=== PATIENT | male | born 1965 | race Caucasian/White ===

== ENCOUNTER 2016-12-19 13:09 | Outpatient (CLI) | payer OTHER | END 2016-12-19 13:10 | disposition home or self-care (01) | DX: G47.33 Obstructive sleep apnea (adult) (pediatric) (principal); R09.02 Hypoxemia ==

== ENCOUNTER 2020-11-11 11:23 | Outpatient (CLI) | payer OTHER | END 2020-11-11 11:24 | disposition critical access hospital (66) | LOC: EMS 11:23 | DX: R06.02 Shortness of breath (principal) | CPT/HCPCS: A0425; A0429 ==

== ENCOUNTER 2020-11-11 11:44 | Emergency (ER) | payer OTHER ==
[2020-11-11 11:54] VITALS: BP 201/97
--- NOTE | 2020-11-11 11:58 | ED Physician Documentation ---
History of Present Illness - Stated complaint Stated Complaint: TASED BY [facility] - Chief complaint Chief Complaint: General - History obtained from History obtained from: Patient - Additonal information Additional information: Patient is brought to the emergency department by EMS after becoming short of breath during a traffic stop and ultimately, being tased by the police. Patient states he has a history of COPD and is on 3 L of oxygen at night plus sometimes during the day if needed. He also uses inhalers and a nebulizer machine. Patient also uses CPAP at night. Patient states he is feeling much better now after receiving oxygen in the ambulance. His room air saturation is reported to be 97% on room air. No other complaints at this time. Review of Systems Ten Systems: 10 systems reviewed and negative Constitutional: reports: Reviewed and negative Eyes: reports: Reviewed and negative Ears: reports: Reviewed and negative Nose: reports: Reviewed and negative Throat: reports: Reviewed and negative Cardiac: reports: Reviewed and negative Respiratory: reports: Dyspnea GI: reports: Reviewed and negative : reports: Reviewed and negative Skin: reports: Reviewed and negative Musculoskeletal: denies: Extremity swelling Neurologic: reports: Reviewed and negative Psychiatric: reports: Reviewed and negative Endocrine: reports: Reviewed and negative Immunocompromised: reports: Reviewed and negative PD PAST MEDICAL HISTORY - Past Medical History Cardiovascular: Hypertension Respiratory: COPD, Shortness of breath, Sleep apnea, CPAP use Endocrine/Autoimmune: None GI: GERD : None HEENT: None Psych: Depression, Anxiety, Panic attacks Musculoskeletal: Osteoarthritis Derm: None - Past Surgical History General: Cholecystectomy, Colonoscopy, Other Ortho: Arthroscopic surgery, Other - Present Medications Home Medications: Ambulatory Orders Medication Instructions Recorded Confirmed Acetaminophen [Tylenol Extra 500 mg PO Q6H PRN 07/07/16 07/07/16 Strength] Adalimumab [Humira Pen] 40 mg INJ ONCE 07/07/16 07/12/16 Albuterol Sulf [Ventolin Hfa 2 puffs INH PRN PRN 07/07/16 07/12/16 Inhaler] Docusate Calcium 2 tab PO DAILY 07/07/16 07/12/16 Esomeprazole Magnesium [Nexium] 40 mg PO DAILY 07/07/16 07/12/16 Ipratropium [Atrovent] 2 puffs INH PRN PRN 07/07/16 07/12/16 Losartan/Hydrochlorothiazide 1 mg PO DAILY 07/07/16 07/12/16 [Losartan-Hctz 100-25 mg Tab] Multivit-Minerals/Folic Acid 1 tab PO DAILY 07/07/16 07/07/16 [Centrum Multigummies] Sulfasalazine [Sulfazine] 1,000 mg PO BID 07/07/16 07/12/16 oxyCODONE [Roxicodone] 40 mg PO BID PRN 07/07/16 07/12/16 - Allergies Allergies/Adverse Reactions: Allergies Allergy/AdvReac Type Severity Reaction Status Date / Time lisinopril Allergy Severe Unknown Verified 11/11/20 11:54 PD ED PE NORMAL - Vitals Vital signs reviewed: Yes - General General: Alert and oriented X 3, No acute distress, Other (Moderate obesity.) - HEENT HEENT: Atraumatic, PERRL, EOMI, Moist mucous membranes - Neck Neck: Supple, no meningeal sign - Cardiac Cardiac: RRR, No murmur, Strong equal pulses - Respiratory Respiratory: No respiratory distress, Clear bilaterally - Abdomen Abdomen: Soft, Non tender, Non distended - Derm Derm: Normal color, Warm and dry, No rash - Extremities Extremities: No deformity, No edema, No calf tenderness / cord - Neuro Neuro: Alert and oriented X 3, 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 I have confirmed with the police that supplemental oxygen is available at the [facility], and they have stated that patient will be able to use it tonight as per his usual. Departure - Departure Disposition: 01 Home, Self Care Clinical Impression: COPD exacerbation Instructions: ED COPD Flare Comments: CLEAR TO BOOK.
== END 2020-11-11 12:05 | disposition home or self-care (01) ==
LOC: EDUNIT# → ED 11:44
DX: J44.1 Chronic obstructive pulmonary disease with (acute) exacerbation (principal); Z99.81 Dependence on supplemental oxygen; T75.4XXA Electrocution, initial encounter; Y35.833A Legal intervention involving a conducted energy device, suspect injured, initial encounter; I10 Essential (primary) hypertension
CPT/HCPCS: 99283